=== PATIENT | female | born 1995 | race Caucasian/White ===

== ENCOUNTER → 2023-12-05 | Outpatient (CLI) | payer BC | END | disposition home or self-care (01) | LOC: LABWHC1 09:39 | PROVIDERS: ATTEND Obstetrics & Gynecology | DX: O20.0 Threatened abortion (principal) | CPT/HCPCS: 36415; 84702 ==

== ENCOUNTER → 2023-12-07 | Outpatient (CLI) | payer BC | END | disposition home or self-care (01) | LOC: LABWHC1 09:09 | PROVIDERS: ATTEND Obstetrics & Gynecology | DX: O20.0 Threatened abortion (principal); Z3A.00 Weeks of gestation of pregnancy not specified | CPT/HCPCS: 36415; 84702 ==

== ENCOUNTER → 2023-12-17 | Outpatient (CLI) | payer BC ==
--- NOTE | 2023-12-17 16:14 | US ---
EXAMINATION TYPE: Transabdominal DATE OF EXAM: 12/17/2023 2:42 PM COMPARISON: NONE CLINICAL INDICATION: Female, 28 years old with history of Z36.89 SPECIFIED SCREENING; early OB, light spotting, EXAM PERFORMED: OBTA EXAM MEASUREMENTS: GESTATIONAL AGE / DATING Physician Established: (7 weeks/1 days) EDC: 08/03/2024 Dates by LMP: LMP unknown Dates by First Scan: No previous this is first scan Dates by Current Scan for: (6 weeks/4 days) EDC: 08/07 MATERNAL ANATOMY Uterus: 11.0 x 6.6 x 5.5cm Right Ovary: not seen due to bowel gas Left Ovary: 3.9 x 3.4 x 3.0cm Post CDS / Adnexa: wnl Presence of free fluid: no Presence of corpus luteal cyst: left ovary = 2.2 x 1.8 x 2.0cm Presence of subchorionic bleed: no GESTATION / SURVEY CRL: 0.4cm (6 weeks/2 days) MSD: 1.8cm (6 weeks/5 days) Yolk Sac (normal less than 6mm): not seen at this time Heart Rate: 112 bpm Rhythm: Normal IUP: Viable IUP Date of LMP: unknown IMPRESSION: Single live intrauterine gestation ultrasound age 6 weeks 4 days.
== END | disposition home or self-care (01) ==
LOC: RADUSWWP 14:21
PROVIDERS: ATTEND Obstetrics & Gynecology
DX: Z36.89 Encounter for other specified antenatal screening (principal); Z3A.01 Less than 8 weeks gestation of pregnancy
CPT/HCPCS: 76801

== ENCOUNTER 2024-07-29 10:17 | Inpatient (IN) | payer BC ==
[2024-07-21 08:47] VITALS: BMI 36.0
[2024-07-29] MEDS ORDERED: miSOPROStoL 200 MCG TAB PO PRN (10:29)
[2024-07-29] MEDS ORDERED: METHYLERGONOVINE 0.2 MG/ML 1 ML AMP IM PRN (10:29)
[2024-07-29] MEDS ORDERED: OXYTOCIN 10 UNIT/ML 1 ML VIAL IM PRN (10:29)
[2024-07-29] MEDS ORDERED: TRANEXAMIC 1,000 MG/100ML-NACL 1,000 MG in EMPTY BAG 1 BAG IV PRN (10:29)
[2024-07-29] MEDS ORDERED: CARBOPROST TROMETHAMINE 250 MCG/ML 1 ML AMP IM PRN (10:29)
[2024-07-29] MEDS: LACTATED RINGERS 1,000 ML IV SCH ×2 (10:44→16:49)
[2024-07-29 10:53] LABS: Basophils % (A) 0 %; Eosinophils % (A) 1 %; HCT 36.8 % (34.0-46.0); HGB 12.3 gm/dL (11.4-16.0); Lymphocytes # (A) 1.5 k/uL (1.0-4.8); Lymphocytes % (A) 22 %; MCH 32.4 pg (25.0-35.0); MCHC 33.5 g/dL (31.0-37.0); MCV 96.9 fL (80.0-100.0); Mean Platelet Volume 8.6; Monocytes # (A) 0.3 k/uL (0-1.0); Monocytes % (A) 4 %; Neutrophils # (A) 5.2 k/uL (1.3-7.7); Neutrophils % (A) 72 %; Platelet Count 194 k/uL (150-450); RDW 12.6 % (11.5-15.5); WBC 7.2 k/uL (3.8-10.6)
[2024-07-29] MEDS: CITRIC ACID-SODIUM CITRATE 15 ML CUP PO ONE (11:40)
[2024-07-29] MEDS ORDERED: OXYTOCIN 30 UNITS/500 ML NS BAG IV ONE (11:57)
[2024-07-29] MEDS ORDERED: NALBUPHINE 10 MG/ML (10 ML MDV) ONE (11:57)
[2024-07-29] MEDS ORDERED: ePHEDrine 50 MG/ML 1 ML VIAL ONE (11:57)
[2024-07-29] MEDS ORDERED: KETOROLAC 15 MG/ML 1 ML VIAL ONE (11:57)
[2024-07-29] MEDS ORDERED: MORPHINE SULFATE (PF) 0.3 MG/0.3 ML SYR ONE (11:57)
[2024-07-29] MEDS ORDERED: ONDANSETRON 4 MG/2 ML VIAL ONE (11:57)
[2024-07-29] MEDS: OXYTOCIN 30 UNITS/500 ML NS 30 UNIT in SALINE 1 500ML.BAG IV SCH (13:08)
[2024-07-29] MEDS ORDERED: METOCLOPRAMIDE 5 MG/ML 2 ML VIAL IVP PRN (13:14)
[2024-07-29] MEDS ORDERED: ZOLPIDEM 5 MG TAB PO PRN (13:14)
[2024-07-29] MEDS ORDERED: diphenhydrAMINE 50 MG CAP PO PRN (13:14)
[2024-07-29] MEDS ORDERED: ONDANSETRON 4 MG/2 ML VIAL IVP PRN (13:14)
[2024-07-29] MEDS ORDERED: diphenhydrAMINE 50 MG/ML 1 ML VIAL IVP PRN ×2 (13:14)
[2024-07-29] MEDS ORDERED: NALOXONE 0.4 MG/ML 1 ML VIAL IV PRN (13:14)
[2024-07-29] MEDS ORDERED: diphenhydrAMINE 25 MG CAP PO PRN (13:14)
[2024-07-29] MEDS ORDERED: HYDROmorphone 2 MG/ML 1 ML SYRINGE IVP PRN (13:18)
[2024-07-29] MEDS: ACETAMINOPHEN TAB 500 MG TAB PO SCH (16:10)
[2024-07-29] MEDS: SENNOSIDES-DOCUSATE SODIUM 1 EACH TAB PO SCH (20:00)
[2024-07-29] MEDS: KETOROLAC 15 MG/ML 1 ML VIAL IVP SCH (20:00)
[2024-07-30 04:19] LABS: Basophils % (A) 0 %; Eosinophils % (A) 0 %; HCT 30.8 % (34.0-46.0); HGB 10.3 gm/dL (11.4-16.0); Lymphocytes # (A) 1.2 k/uL (1.0-4.8); Lymphocytes % (A) 19 %; MCH 32.8 pg (25.0-35.0); MCHC 33.5 g/dL (31.0-37.0); MCV 98.1 fL (80.0-100.0); Monocytes # (A) 0.3 k/uL (0-1.0); Monocytes % (A) 4 %; Neutrophils # (A) 4.9 k/uL (1.3-7.7); Neutrophils % (A) 75 %; Platelet Count 145 k/uL (150-450); RBC 3.14 m/uL (3.80-5.40); RDW 12.7 % (11.5-15.5); WBC 6.5 k/uL (3.8-10.6)
--- NOTE | 2024-07-30 07:47 | P.HPOB ---
History of Present Illness H&P Date: 07/29/24 Chief Complaint: repeat low transverse 29 year old presents at 39 weesk 2 days for repeat low transverse c- section. Review of Systems All systems: negative Constitutional: Denies chills, Denies fever Eyes: denies blurred vision, denies pain Ears, nose, mouth and throat: Denies headache, Denies sore throat Cardiovascular: Denies chest pain, Denies shortness of breath Respiratory: Denies cough Gastrointestinal: Denies abdominal pain, Denies diarrhea, Denies nausea, Denies vomiting Genitourinary: Denies dysuria, Denies hematuria Musculoskeletal: Denies myalgias Integumentary: Denies pruritus, Denies rash Neurological: Denies numbness, Denies weakness Psychiatric: Denies anxiety, Denies depression Endocrine: Denies fatigue, Denies weight change Past Medical History Past Medical History: No Reported History, GERD/Reflux, Hypertension Additional Past Medical History / Comment(s): Occasional acid reflux. high blood pressure towards the end of last . History of Any Multi-Drug Resistant Organisms: None Reported Past Surgical History: Adenoidectomy, Section, Orthopedic Surgery, T onsillectomy Additional Past Surgical History / Comment(s): ACL repair rt side. Past Anesthesia/Blood Transfusion Reactions: No Reported Reaction Additional Past Anesthesia/Blood Transfusion Reaction / Comment(s): No hx of bl ood transfusion. Past Psychological History: No Psychological Hx Reported Smoking Status: Never smoker Past Alcohol Use History: None Reported Past Drug Use History: None Reported - Past Family History Father Family Medical History: Diabetes Mellitus Additional Family Medical History / Comment(s): type 2 Mother Family Medical History: Cancer Additional Family Medical History / Comment(s): Melanoma Medications and Allergies Home Medications Medication Instructions Recorded Confirmed Type Pnv 11/Iron Fum/Folic Acid/Om3 1 each PO DAILY 05/23/22 07/29/24 History [Virt-Scar Dha Softgel] Allergies Allergy/AdvReac Type Severity Reaction Status Date / Time No Known Allergies Allergy Verified 07/29/24 10:39 Exam Osteopathic Statement: *. No significant issues noted on an osteopathic structural exam other than those noted in the History and Physical/Consult. Vital Signs Temp Pulse Resp BP Pulse Ox 07/30/24 04:00 98.7 F 44 L 18 120/65 07/30/24 00:00 98.3 F 78 18 120/77 07/29/24 20:00 98.4 F 94 18 123/68 07/29/24 16:00 98.6 F 92 18 119/70 96 07/29/24 14:41 87 16 114/69 100 07/29/24 14:26 90 16 124/59 98 07/29/24 14:11 78 18 145/68 99 07/29/24 13:56 83 18 131/69 98 07/29/24 13:41 78 16 133/67 98 07/29/24 13:26 86 18 147/67 98 07/29/24 13:11 93 18 124/64 97 07/29/24 12:56 83 16 127/60 98 07/29/24 12:41 96.7 F L 79 18 122/74 97 Intake and Output 07/29/24 07/30/24 07/30/24 22:59 06:59 14:59 Intake Total 400 700 Output Total 800 Balance 400 -100 Intake: Oral 400 700 Output: Urine 800 Other: Voiding Method Indwelling Catheter # Voids 2 Heart: Regular rate and rhythm Lungs: Clear to auscultation bilaterally Abdomen: Soft, nontender Extremities: Negative Homans sign Results Result Diagrams: 07/30/24 04:07 Abnormal Lab Results - Last 24 Hours (Table) 07/30/24 Range/Units 04:07 RBC 3.14 L (3.80-5.40) m/uL Hgb 10.3 L (11.4-16.0) gm/dL Hct 30.8 L (34.0-46.0) % Plt Count 145 L (150-450) k/uL Assessment and Plan (1) Previous section Current Visit: Yes Status: Acute Code(s): Z98.891 - HISTORY OF UTERINE SCAR FROM PREVIOUS SURGERY SNOMED Code(s): 442776040 (2) 39 weeks gestation of Current Visit: Yes Status: Acute Code(s): Z3A.39 - 39 WEEKS GESTATION OF SNOMED Code(s): 99903210 Plan: 1. [facility]
--- NOTE | 2024-07-30 07:49 | P.OP ---
Date of Procedure: 07/30/24 Preoperative Diagnosis: 1. previous 2. 39 weeks gestation Postoperative Diagnosis: same Procedure(s) Performed: Repeat low transverse Anesthesia: spinal Surgeon: Caitlin Wynn [employer]: Luna Gautam Estimated Blood Loss (ml): 400 IV fluids (ml): 600 Urine output (ml): 200 Pathology: none sent Condition: stable Disposition: floor Operative Findings: Normal uterus, tubes, ovaries. Apgars 9, 9, weight 6 lbs. 12 oz. viable female Description of Procedure: Patient was taken to the operating room where spinal anesthesia was found be adequate. She was prepped and draped in normal sterile fashion in dorsal supine position with a leftward tilt. Pfannenstiel skin incision was made the scalpel and carried through to the underlying layer of fascia with the scalpel. Fascia was incised in midline and carried bilaterally with the Whittington scissors. The superior aspect of the fascial incision was grasped with Wheaton clamps elevated and the underlying rectus muscles dissected off with the Whittington's. Attention was then turned to inferior aspect of same incision which in a similar fashion was grasped tented up and the underlying rectus muscles dissected off with the Whittington's. The rectus muscles were the midline and the peritoneum was identified tented up and entered sharply with the scalpel. The incision was extended superiorly and inferiorly with good visualization of the bladder. The bladder blade was inserted and the vesicouterine peritoneum was incised the Metzenbaums then carried bilaterally and bladder flap created digitally. A low transverse incision was then made on the uterus with the scalpel. This was carried bilaterally and digital manner. 's head delivered atraumatically, nose and mouth bulb suctioned, cord clamped and cut, handed off to waiting nurses. Apgars 9,9, weight6 lbs.12 oz. Placenta delivered manually, intact with three-vessel cord. The uterus is exteriorized and cleared of all c lots and debris. The uterine incision was closed with 0 Vicryl in a running locked fashion. Second layer of the same sutures used in imbricating fashion to obtain excellent hemostasis. Both ovaries and tubes appeared normal. The uterus was placed back into the abdomen. The peritoneum was reapproximated using 2-0 Vicryl in a running fashion. The fascia was reapproximated using 0 Vicryl in a running fashion. The subcutaneous tissues closed with 3-0 Vicryl running fashion. The skin was closed nita. Patient tolerated the procedure well, sponge and instrument counts were correct times 2 and she was taken to the recovery room in stable condition.
--- NOTE | 2024-07-30 08:23 | P.PNOBGPC ---
Subjective - Subjective Principal diagnosis: S/P RLTCS POD #1 Interval history: Seen and examined. Denies nausea, vomiting, chest pain, shortness of breath or calf pain Patient reports: Reports appetite normal, Reports voiding normally, Reports pain well controlled, Reports ambulating normally [place]: doing well Objective - Vital Signs Latest vital signs: Vital Signs Temp Pulse Resp BP Pulse Ox 07/30/24 04:00 98.7 F 44 L 18 120/65 07/30/24 00:00 98.3 F 78 18 120/77 07/29/24 20:00 98.4 F 94 18 123/68 07/29/24 16:00 98.6 F 92 18 119/70 96 07/29/24 14:41 87 16 114/69 100 07/29/24 14:26 90 16 124/59 98 07/29/24 14:11 78 18 145/68 99 07/29/24 13:56 83 18 131/69 98 07/29/24 13:41 78 16 133/67 98 07/29/24 13:26 86 18 147/67 98 07/29/24 13:11 93 18 124/64 97 07/29/24 12:56 83 16 127/60 98 07/29/24 12:41 96.7 F L 79 18 122/74 97 Intake and Output 07/29/24 07/30/24 07/30/24 22:59 06:59 14:59 Intake Total 400 700 Output Total 800 Balance 400 -100 Intake: Oral 400 700 Output: Urine 800 Other: Voiding Method Indwelling Catheter # Voids 2 - Exam Lungs: bilateral: normal Chest: Normal S1, Normal S2 Extremities: Present: normal Abdomen: Present: normal appearance, soft. Absent: distention, tenderness Incision: Present: normal, dry, intact Uterus: Present: normal, firm - Labs Labs: Abnormal Lab Results - Last 24 Hours (Table) 07/30/24 Range/Units 04:07 RBC 3.14 L (3.80-5.40) m/uL Hgb 10.3 L (11.4-16.0) gm/dL Hct 30.8 L (34.0-46.0) % Plt Count 145 L (150-450) k/uL Assessment and Plan (1) Previous section Current Visit: Yes Status: Resolved Code(s): Z98.891 - HISTORY OF UTERINE SCAR FROM PREVIOUS SURGERY SNOMED Code(s): 036396726 (2) 39 weeks gestation of Current Visit: Yes Status: Resolved Code(s): Z3A.39 - 39 WEEKS GESTATION OF SNOMED Code(s): 93974380 (3) Status post normal vaginal delivery Current Visit: Yes Status: Acute Code(s): [id number] - SNOMED Code(s): 018044926 Plan: 1. increase ambulation
[2024-07-30] MEDS ORDERED: IBUPROFEN 800 MG TAB PO SCH ×2 (08:30→20:00)
--- NOTE | 2024-07-30 11:44 | P.PN ---
Progress Note - Text 07/30/24 621am 29-year-old female status post with spinal Duramorph. Patient seen and evaluated for postop pain control she has a VAS of 1 with no complaints of nausea vomiting she has mild pruritus which should subside
[2024-07-30] MEDS: IBUPROFEN 800 MG TAB PO SCH (12:48)
--- NOTE | 2024-07-31 07:46 | P.DS ---
Providers Date of admission: 07/29/24 10:17 Expected date of discharge: 07/31/24 Attending physician: Caitlin Wynn Primary care physician: Stated None - Discharge Diagnosis(es) (1) Status post section Current Visit: Yes Status: Acute (2) 39 weeks gestation of Current Visit: Yes Status: Resolved (3) Previous section Current Visit: Yes Status: Resolved Hospital Course: This is a 29-year-old 3 now para 2-0-1-2 that presented to labor and delivery on 07/29 for scheduled repeat section. Patient has been receiving routine care which is been essentially uncomplicated. For full details in this patient please see the dictated history and physical. Patient was admitted and repeat section was performed without difficulty. Patient delivered a viable female at 1213, weight of 6 pounds 12 ounces. For full details on the section please see the dictated operative report. Patient's postoperative course has been uneventful. In this postoperative day #2 she is ambulating and voiding without difficulty. She is tolerating a regular diet without nausea or vomiting. She states her bleeding is minimal. She denies concerns and would like discharge home. Patient Condition at Discharge: Good Plan - Discharge Summary Discharge Rx Participant: No New Discharge Prescriptions: No Action Pnv 11/Iron Fum/Folic Acid/Om3 [Virt-Scar Dha Softgel] 1 each PO DAILY Discharge Medication List Pnv 11/Iron Fum/Folic Acid/Om3 [Virt-Scar Dha Softgel] 1 each PO DAILY 05/23/22 [History] Follow up Appointment(s)/Referral(s): Caitlin Wynn DO [Doctor of Osteopathic Medicine] - 08/12/24 1:45 pm (Post Appointment 09/09/2024 @ 1:45pm) Patient Instructions/Handouts: (DC), (GEN) Activity/Diet/Wound Care/Special Instructions: Tub baths or intercourse until 6 weeks . [id number] ibuprofen 600 mg or 3 tablets every 6 hours as needed for pain. 1 g of Tylenol 4 times daily as needed, limit is 4 g in 24 hours. Senna S for a stool softener is recommended until regular bowel movements. Patient is to call the office to make a routine visit for 2 weeks postoperatively. Should she have any concerns prior to this appointment she is urged to call the office. Discharge Disposition: HOME SELF-CARE
[2024-07-31 08:16] VITALS: BP 110/64; PULSE 83; RESP 16; TEMP 97.9
== END 2024-07-31 10:40 | disposition home or self-care (01) | DRG 788 ==
LOC: 4FBP 10:17
PROVIDERS: ADMIT Obstetrics & Gynecology; ATTEND Obstetrics & Gynecology
PROC: 10D00Z1 Extraction of Products of Conception, Low, Open Approach (ICD-10-PCS; principal; 2024-07-29 12:00)
DX: O34.211 Maternal care for low transverse scar from previous cesarean delivery (principal); Z37.0 Single live birth; Z3A.39 39 weeks gestation of pregnancy
CPT/HCPCS: 85025; 86850; 86900; 86901